=== PATIENT | female | born 1980 | race Hispanic/Latino ===

== ENCOUNTER 2019-04-12 12:44 | Observation (INO) | payer OTHER ==
[~2019-04-12] VITALS: Ht 165.1 cm; Wt 67.9 kg
--- NOTE | 2019-04-12 13:06 | NUR ---
PT ARRIVED VIA WC TO THE UNIT
[2019-04-12 13:08] VITALS: BP 134/69
--- NOTE | 2019-04-12 13:45 | NUR ---
ASSESSMENT IS COMPLETED: IV SITE IS OBTAINED IN RAC WITH # 20 1 ATTEMPT. BREATH SOUNDS ARE CLEAR,BILATERALLY. HR IS REG,PULSES ARE STRONG X4, ABD IS SOFT WITH ACTIVE BS. ALL INFORMATION OBTAINED THROUGH AN SEGMENTAL WALL INSTALLER OF SVETLANA SZYMANSKI. FAMILY IN THE ROOM. CONTINUE TO OSBERVE AND MONITOR.
--- NOTE | 2019-04-12 14:05 | NUR ---
HAD SVETLANA FROM BUSINESS OFFICE COME AND INTERPRET THE ADMISSION QUESTIONS AND ANSWER ANY QUESTIONS THAT PT MAY HAVE HAD, SPOUSE IN THE ROOM.
--- NOTE | 2019-04-12 14:20 | NUR ---
PT TRANSPORTED TO HAVE AN MRCP COMPLETED VIA WC
--- NOTE | 2019-04-12 15:30 | NUR ---
PT RETURNED FROM MRI VIA WC , GAVE WATER UNDERSTANDS THAT WILL BE NPO AFTER MIDNIGHT
[2019-04-12 16:10] VITALS: BP 116/74
--- NOTE | 2019-04-12 19:15 | NUR ---
REPORT RECEIVED FROM FABRICE JIANG. PT RESTING IN BED. NO S/S OF DISTRESS AT THIS TIME. SAFETY PRECAUTIONS IN PLACE. WILL CONTINUE TO MONITOR.
[2019-04-12 19:40] VITALS: BP 103/63
--- NOTE | 2019-04-12 20:32 | NUR ---
PT RESTING IN BED ALERT AND ORIENTED. RESPIRATIONS EVEN AND UNOLABORED ON RA. LUNGS SOUND CLEAR. PEDAL PULSES ARE WEAK. PT DENIES ANY PAIN OR DISCOMFORT AT THIS TIME. #20 RAC PATENT AND APPEARS HEALTHY. SAFETY PRECAUTIONS IN PLACE. WILL CONTINUE TO MONITOR.
[2019-04-13] VITALS (10 sets, daily range): BP systolic 111–133; BP diastolic 54–71
--- NOTE | 2019-04-13 01:24 | NUR ---
PT EDUCATED ON POC AND NPO DIET CHANGE. NO S/S OF DISTRESS AT THIS TIME. SAFETY PRECAUTIONS IN PLACE. WILL CONTINUE TO MONITOR.
--- NOTE | 2019-04-13 04:00 | NUR ---
PT RESTING IN BED. RESPIRATIONS EVEN AND UNLABORED ON RA. NO S/S OF DISTRESS AT THIS TIME. SAFETY PRECAUTIONS IN PLACE. WILL CONTINUE TO MONITOR
[2019-04-13 05:17] LABS: TOTAL PROTEIN 8.5 g/dL (6.3-8.2)
[2019-04-13 05:20] LABS: BILIRUBIN, TOTAL 2.4 mg/dL (0.0-1.4)
--- NOTE | 2019-04-13 08:05 | NUR ---
REPORT WAS RECEIVED FROM RUSSEL. ASSESSMENT DONE. PT IS A&O X3. RESPS EVEN AND UNLABORED. PT DENIES PAIN AT THIS TIME. PT IS NPO. PT WAITING FOR DOCTOR. EXPLAIN HE WILL BE COMING LATER. PT DENIES ANY OTHER NEEDS. CALL LIGHT IN REACH.
--- NOTE | 2019-04-13 09:30 | NUR ---
DR. LA AT BEDSIDE.
--- NOTE | 2019-04-13 10:14 | NUR ---
PT WENT VIA STRETCHER TO OR BY BRII
--- NOTE | 2019-04-13 13:30 | NUR ---
PT STATED PAIN IN ABD 09/11. PT STATED SHE HAS NAUSEA. MEDICATION NOT DUE YET. CALLED DR. IBANEZ AND ORDERS RECEIVED FOR ZOFRAN 1X DOSE.
--- NOTE | 2019-04-13 13:30 | NUR ---
PT CAME FROM OR VIA STRETCHER BY ENRIQUETA AND REPORT RECEIVED BY HER. PT MOVING FROM STRETCHER TO BED IN A SLOW MOVEMENT. SCD PLACE. IVF INFUSING WELL. PT DENIES PAIN AT THIS TIME. X4 INCISION IN ABD WITH DERMADOND. IN ROOM. CALL LIGHT IN REACH.
--- NOTE | 2019-04-13 14:04 | NUR ---
PT IS SLEEPING IN BED WITH NO S/S OF DISTRESS NOTED. IN ROOM.
--- NOTE | 2019-04-13 15:15 | NUR ---
PT IS RESTING IN BED WITH NO S/S OF DISTRESS NOTED. PT DRINKING APPLE JUICE. EDUCATED PT HOW TO USE THE I.S. PT VERBALIZED UNDERSTANDING. PT STATED PAIN IN ABD 12/12 BUT REFUSED PAIN MEDICATION AT THIS TIME. CALL LIGHT IN REACH. IN ROOM.
--- NOTE | 2019-04-13 20:35 | NUR ---
PT RESTING IN BED, NO SIGNS OF DISTRESS NOTED, RESP EVEN AND UNLABORED. IS AT BEDSIDE, EDUCATED ON IT'S USE. SCD'S IN PLACE. DISCUSSED POC, ABD INCISIONS X4 SECURED WITH DERMABOND,KENRICK,SASHA. ASSESSMENT COMPLETED, ASSISTED PT TO BATHROOM TO VOID. ENCOURAGED PT TO AMBULATE, FAMILY AT BEDSIDE. PT STATES SHE WILL AMBULATE. CALL LIGHT IN REACH,CONTINUE TO MONITOR.
--- NOTE | 2019-04-13 21:18 | NUR ---
PT ASSISTED BACK TO BED, NO SIGNS OF DISTRESS NOTED, RESP EVEN AND UNLABORED. SCD'S BACK IN PLACE. CALL LIGHT IN REACH,CONTINUE TO MONITOR.
--- NOTE | 2019-04-13 23:44 | NUR ---
PT RESTING IN BED WITH EYES CLOSED, EASILY AROUSED TO VERBAL STIMULI. PT MEDICATED PER SEP. CALL LIGHT IN REACH,CONTINUE TO MONITOR.
[2019-04-14 00:38] VITALS: BP 120/68
[2019-04-14 04:30] VITALS: BP 114/68
[2019-04-14 05:04] LABS: BILIRUBIN, TOTAL 1.9 mg/dL (0.0-1.4); TOTAL PROTEIN 6.9 g/dL (6.3-8.2)
[2019-04-14 05:08] LABS: ALBUMIN 3.8 g/dL (3.2-5.0)
--- NOTE | 2019-04-14 05:28 | NUR ---
PT RESTING IN BED WATCHING TV, MEDICATED PER SEP. PT VOICES NO NEEDS OR COMPLAINTS AT THIS TIME. CALL LIGHT IN REACH,CONTINUE TO MONITOR.
[2019-04-14 07:41] VITALS: BP 123/77
--- NOTE | 2019-04-14 08:00 | NUR ---
PT SEEN UP IN ROOM AMBULATING AROUND. NO ACUTE PAIN NOTED, BUT SOME DISCOMFORT APPARENT. LUNGS CLEAR, RA. DAUGHTER AT BEDSIDE. PT TO HAVE REGULAR DIET THIS AM. PT STATES THAT SHE HAD YELLOW DIARRHEA THIS AM.
--- NOTE | 2019-04-14 10:19 | NUR ---
PT HAS EATEN BREAKFAST WITHOUT ADVERSE EFFECT, NO N/V. SHE DID HAVE ANOTHER LOOSE STOOL THIS MORNING, YELLOW.
[2019-04-14] MEDS ORDERED: PERCOCET 5/325M1 TAB PO (10:35)
--- NOTE | 2019-04-14 11:06 | NUR ---
DR LA HAS SEEN PT THIS MORNING AND DISCHARGED HER TO HOME. PT VERBALIZES UNDERSTANDING OF DC INSTRUCTIONS, VOLUNTEERS HERE TO TRANSPORT PT TO HER VEHICLE. PT LEAVES IN STABLE CONDITION, HAS BEEN GIVEN RX FOR PERCOCET FOR PAIN, ACCOMPANIED BY FAMILY.
== END 2019-04-14 11:08 | disposition home or self-care (01) ==
LOC: MS2 12:44
PROVIDERS: ADMIT Surgery; ATTEND Surgery
DX: K80.62 Calculus of gallbladder and bile duct with acute cholecystitis without obstruction (principal)
CPT/HCPCS: G0378; G0379; J0131; J2710

== ENCOUNTER 2021-01-18 09:01 | Emergency (ER) | payer SELFPAY ==
[~2021-01-18] VITALS: Ht 165.1 cm; Wt 71.2 kg
[~2021-01-18 09:01] MED LIST: PERCOCET 5/325M1 TAB PO
[2021-01-18 09:40] LABS: GFR > 60 ML/MIN (>=60 (CALC)); GFR FOR AFR.AMER. > 60 ML/MIN (>=60 (CALC)); HEMATOCRIT 39.8 % (37.0-47.0); HEMOGLOBIN 13.6 g/dl (12.0-16.0); IMMATURE GRANULOCYTES 0.1 % (0.0-5.0); MEAN CELL VOLUME 89.6 fL CALC (80.0-100.0); MEAN CORPUSCULAR HGB 30.6 pG CALC (26.0-32.0); MEAN CORPUSCULAR HGB CONC 34.2 g/dL CAL (32.0-36.0); NEUT# 4.68 thou/uL (2.00-7.15); RED BLOOD COUNT 4.44 mill/uL (4.20-5.60); RED CELL DISTRI WIDTH 13.4 % (11.5-15.5)
[2021-01-18 09:59] LABS: ALBUMIN 4.5 g/dL (3.2-5.0); ALKALINE PHOSPHATASE 68 u/l (38-126); ANION GAP 14 (6-22 (CALC)); BUN 13 mg/dL (7-17); BUN/CREATININE RATIO 22 (12-20 (CALC)); CARBON DIOXIDE 21 mmol/l (22-30); CHLORIDE 105 mmol/l (95-108); CREATININE 0.6 mg/dL (0.5-1.0); GFR > 60 ML/MIN (>=60 (CALC)); GFR FOR AFR.AMER. > 60 ML/MIN (>=60 (CALC)); SODIUM 135 mmol/l (137-146); TOTAL PROTEIN 8.1 g/dL (6.3-8.2)
[2021-01-18 10:00] LABS: ACT PARTIAL THROMBO TIME 26.1 SECONDS (20.0-32.5); BILIRUBIN, TOTAL 0.7 mg/dL (0.0-1.4); PROTHROMBIN TIME 10.1 SECONDS (9.0-12.5); SGOT/AST 23 u/l (14-36)
[2021-01-18 10:11] LABS: MYOGLOBIN 16 ng/mL (0 - 62)
[2021-01-18 11:08] LABS: URINE BILIRUBIN - DIPSTICK NEGATIVE (NEGATIVE); URINE BLOOD DIPSTICK NEGATIVE (NEGATIVE); URINE CLARITY CLEAR; URINE COLOR YELLOW; URINE GLUCOSE - DIPSTICK NEGATIVE (NEGATIVE); URINE KETONE TRACE mg/dL (NEGATIVE); URINE LEUK ESTERASE NEGATIVE (Negative); URINE NITRITE - DIPSTICK NEGATIVE (Negative); URINE PROTEIN - DIPSTICK NEGATIVE (NEG-TRACE); URINE SPECIFIC GRAVITY <=1.005; URINE UROBILINOGEN - DIPSTICK 0.2 E.U./dL (0.2)
[2021-01-18] MEDS ORDERED: ONDANSETRON4 MG PO (12:00)
[2021-01-18] MEDS ORDERED: MECLIZINE25 MG PO (12:00)
[2021-01-19 09:43] VITALS: BP 145/107
== END 2021-01-18 12:13 | disposition home or self-care (01) | DRG 149 ==
LOC: ED 09:01
PROVIDERS: Emergency Medicine
DX: R42 Dizziness and giddiness (principal); R20.0 Anesthesia of skin; Z20.822 Contact with and (suspected) exposure to COVID-19
CPT/HCPCS: Q9967